=== PATIENT | female | born 1975 | race Asian ===

== ENCOUNTER → 2019-01-07 09:31 | Outpatient (CLI) | payer OTHER, SELFPAY | PROVIDERS: PCP Family Medicine; Visit Provider Specialist | DX: Z31.9 Encounter for procreative management, unspecified (principal) | CPT/HCPCS: 36415; 84144 ==

== ENCOUNTER → 2019-04-10 12:30 | Outpatient (CLI) | payer OTHER, SELFPAY ==
--- NOTE | 2019-04-10 12:31 | DI.RAD.S_ITS ---
PROCEDURE: HL HYSTEROSAPINGOGRAPHY INDICATIONS: Infertility COMPARISON: None. FINDINGS: Technique: Referring clinical provider Dr. Yarelis Jernigan was present for the entirety of the procedure and exam, and performed the speculum insertion, the insertion of a balloon-tip catheter into the cervical canal, and securing of the catheter by inflating the balloon. Dr. Jernigan then injected contrast into the endometrial canal. Radiographic images were obtained. Uterus: The uterine cavity appears normal in size and morphology, without synechiae or masses. Fallopian tubes: Both fallopian tubes fill with contrast, and appear normal in caliber and morphology. There is ready dispersion of contrast into the peritoneal cavity bilaterally. IMPRESSION: Bilateral fallopian tubes appear patent. Dictated by: Dean Banks M.D. on 04/10/2019 at 15:50 Approved by: Dean Banks M.D. on 04/10/2019 at 16:06
--- NOTE | 2019-04-10 13:24 | PM.PROC.1 ---
Procedures Date/Time Date of procedure: 04/10/19 Time of procedure: 13:05 General Procedure description: Patient patient came in for hysterosalpingogram for infertility. Consent form was signed with the patient her questions were answered. A speculum was placed in the vagina and the cervix cleaned with Betadine. The catheter was placed through the cervix and the balloon inflated with 1 cc of air. After checking for placement the contrast material was injected into the uterus. Fluoroscopy was performed. There were no obvious intrauterine abnormalities. There was free flow through the fallopian tubes of the dye into the abdominal cavity. Patient tolerated the procedure well. Complications: none
== END ==
PROVIDERS: PCP Family Medicine; Visit Provider Specialist
DX: N97.0 Female infertility associated with anovulation (principal)
CPT/HCPCS: 58322; 58340; 74740